=== PATIENT | female | born 1980 | race African-American/Black ===

== ENCOUNTER 2016-07-28 04:04 | Emergency (ER) | payer OTHER ==
[~2016-07-28] VITALS: Ht 175.3 cm; Wt 74.8 kg
[2016-07-28 04:16] VITALS: BP 107/55
--- NOTE | 2016-07-28 04:26 | NUR ---
Gian vicente in [facility] - 07/28/16 at 0428 by INDIO Patient to bed 05.
--- NOTE | 2016-07-28 04:27 | NUR ---
PT IS 35Y F BIB FAMILY C/O PRODUCTIVE COUGH X2 WKS.
--- NOTE | 2016-07-28 04:28 | NUR ---
Patient ambulated to bed 04.
--- NOTE | 2016-07-28 04:54 | NUR ---
Dr. Purdy evaluating patient at bedside.
[2016-07-28 05:34] VITALS: BP 105/58
--- NOTE | 2016-07-28 05:35 | NUR ---
Patient discharged with v/s stable. Written and verbal after care instructions given and explained. Patient alert, oriented and verbalized understanding of instructions. Ambulatory with steady gait. All questions addressed prior to discharge. ID band removed. Patient advised to follow up with PMD. Rx of ALBUTEROL 90MCG/ACTUATION INHALATION AEROSOL, CHERATUSSIN AC 100MG-10MG/5ML EXPECTORANT COUGH SUPPRESSANT given. Patient educated on indication of medication including possible reaction and side effects. Opportunity to ask questions provided and answered.
== END 2016-07-28 05:35 | disposition home or self-care (01) ==
LOC: MED 04:04
DX: J06.9 Acute upper respiratory infection, unspecified (principal)

== ENCOUNTER 2019-02-17 19:04 | Emergency (ER) | payer OTHER ==
[~2019-02-17] VITALS: Ht 299.7 cm; Wt 108.4 kg
[2019-02-17 19:22] VITALS: BP 145/75
--- NOTE | 2019-02-17 19:26 | NUR ---
PT AMBULATED TO BED 8.
--- NOTE | 2019-02-17 19:45 | NUR ---
38 Y/O FEMALE PRESENTS TO ED, C/O URINARY BURNING AND PAIN ON SUPRAPUBIC REGION 01/20. PT STATES PAIN BEGAN YESTERDAY AND WORSENED TODAY. ACTIVE BS ON ALL QUADRANTS. LOWER ABD IS SOFT AND TENDER, PAIN ON PALPATION. NORMAL BM. DENIES TAKING ANY MEDICATIONS. DENIES ANY N/V/D. PT VSS. ERMD AWARE. WILL CONTINUE TO MONITOR.
--- NOTE | 2019-02-17 20:33 | NUR ---
Dr. Lyles examining patient.
[2019-02-17 21:18] LABS: APPEARANCE,URINE CLOUDY (CLEAR); BILIRUBIN,URINE NEGATIVE (NEGATIVE); BLOOD, URINE 3+ (NEGATIVE); COLOR,URINE YELLOW (YELLOW); LEUKOCYTE ESTERASE ,URINE 1+ (NEGATIVE); NITRITE, URINE POSITIVE (NEGATIVE); UGLUCOSE NEGATIVE (NEGATIVE)
[2019-02-17 21:27] LABS: RBC,URINE >100 /HPF (0-5); WBC,URINE 20-60 /HPF (0-5)
[2019-02-17 21:35] VITALS: BP 145/75
--- NOTE | 2019-02-17 21:35 | NUR ---
PT DISCHARGED WITH PAPERWORK. RX KELFEX, PYRIDIUM. EDUCATED PT REGARDING MEDICATIONS AND S/E. EDUCATED PT REGARDING D/C DIAGNOSIS AND INSTRUCTIONS. PT VERBALIZED UNDERSTANDING OF TEACHING. TOLD PT'S MOTHER TO FOLLOW UP WITH PCP AND WHEN TO RETURN TO ED. PT VSS. ALL QUESTIONS ANSWERED.
== END 2019-02-17 21:35 | disposition home or self-care (01) ==
LOC: MED 19:04
DX: N39.0 Urinary tract infection, site not specified (principal)
CPT/HCPCS: 81001; 81002; 81025; 87086; 87186; 99283